=== PATIENT | male | born 1945 | race Caucasian/White ===

== ENCOUNTER 2021-11-17 14:55 | Outpatient (CLI) | payer MEDICARE | END 2021-11-17 14:56 | disposition home or self-care (01) | LOC: RAD-FRANK 14:55 | PROVIDERS: ATTEND Nurse Practitioner Family | DX: K59.00 Constipation, unspecified (principal) | CPT/HCPCS: 74018 ==

== ENCOUNTER 2021-12-08 09:57 | Outpatient (CLI) | payer MEDICARE | END 2021-12-08 09:58 | disposition home or self-care (01) | LOC: NM 09:57 | PROVIDERS: ATTEND Internal Medicine Hematology & Oncology | DX: C79.51 Secondary malignant neoplasm of bone (principal); C78.7 Secondary malignant neoplasm of liver and intrahepatic bile duct; C7A.1 Malignant poorly differentiated neuroendocrine tumors | CPT/HCPCS: 78306; A9503 ==

== ENCOUNTER 2022-03-22 08:33 | Outpatient (CLI) | payer MEDICARE ==
[2022-03-22] MEDS ORDERED: Iopamidol 370 76% 100 ML VIAL ONE (09:20)
== END 2022-03-22 08:34 | disposition home or self-care (01) ==
LOC: CT 08:33
PROVIDERS: ATTEND Internal Medicine Hematology & Oncology
DX: C7A.1 Malignant poorly differentiated neuroendocrine tumors (principal); C78.7 Secondary malignant neoplasm of liver and intrahepatic bile duct; C79.51 Secondary malignant neoplasm of bone; C77.5 Secondary and unspecified malignant neoplasm of intrapelvic lymph nodes; K62.89 Other specified diseases of anus and rectum
CPT/HCPCS: 71260; 74177; 78306; 82565; A9503; Q9967

== ENCOUNTER 2022-06-17 12:21 | Outpatient (CLI) | payer MEDICARE ==
[~2022-06-17 12:21] MED LIST: Iopamidol 370 76% 100 ML VIAL ONE
== END 2022-06-17 12:22 | disposition home or self-care (01) ==
LOC: BICCT 12:21
PROVIDERS: ATTEND Internal Medicine Hematology & Oncology
DX: C7A.1 Malignant poorly differentiated neuroendocrine tumors (principal); C78.7 Secondary malignant neoplasm of liver and intrahepatic bile duct; C79.51 Secondary malignant neoplasm of bone; R59.0 Localized enlarged lymph nodes; K62.89 Other specified diseases of anus and rectum
CPT/HCPCS: 71260; 74177; Q9967

== ENCOUNTER 2022-12-05 08:21 | Outpatient (CLI) | payer MEDICARE ==
[2022-12-05] MEDS ORDERED: Iopamidol 370 76% 100 ML VIAL ONE (14:10)
== END 2022-12-05 08:22 | disposition home or self-care (01) ==
LOC: BICCT 08:21
PROVIDERS: ATTEND Internal Medicine Hematology & Oncology
DX: C7A.1 Malignant poorly differentiated neuroendocrine tumors (principal); C78.7 Secondary malignant neoplasm of liver and intrahepatic bile duct; C79.51 Secondary malignant neoplasm of bone; R59.0 Localized enlarged lymph nodes; K76.89 Other specified diseases of liver; M89.9 Disorder of bone, unspecified; K62.89 Other specified diseases of anus and rectum; Z93.3 Colostomy status
CPT/HCPCS: 71260; 74177; 82565; Q9967

== ENCOUNTER 2023-01-02 11:27 | Outpatient (CLI) | payer MEDICARE | END 2023-01-02 11:28 | disposition home or self-care (01) | LOC: RAD-FRANK 11:27 | PROVIDERS: ATTEND Nurse Practitioner Family | DX: R05.9 Cough, unspecified (principal) | CPT/HCPCS: 71046 ==

== ENCOUNTER 2023-04-25 07:44 | Outpatient (CLI) | payer OTHER | END 2023-04-25 07:45 | disposition home or self-care (01) | LOC: CT 07:44 | PROVIDERS: ATTEND Internal Medicine Hematology & Oncology | DX: C7A.1 Malignant poorly differentiated neuroendocrine tumors (principal); C78.7 Secondary malignant neoplasm of liver and intrahepatic bile duct; C79.51 Secondary malignant neoplasm of bone; K76.9 Liver disease, unspecified; M89.9 Disorder of bone, unspecified; R90.82 White matter disease, unspecified; R59.0 Localized enlarged lymph nodes | CPT/HCPCS: 70470; 71260; 74177; J1642 ==

== ENCOUNTER 2023-08-24 09:59 | Outpatient (CLI) | payer OTHER | END 2023-08-24 10:00 | disposition home or self-care (01) | LOC: CT 09:59 | PROVIDERS: ATTEND Internal Medicine Hematology & Oncology | DX: C7A.1 Malignant poorly differentiated neuroendocrine tumors (principal); C78.7 Secondary malignant neoplasm of liver and intrahepatic bile duct; C79.51 Secondary malignant neoplasm of bone; R59.0 Localized enlarged lymph nodes | CPT/HCPCS: 71260; 74177; 82565 ==

== ENCOUNTER 2023-11-20 09:15 | Outpatient (CLI) | payer OTHER ==
[2023-11-20] MEDS ORDERED: Iopamidol 370 76% 100 ML VIAL ONE (10:51)
== END 2023-11-20 09:16 | disposition home or self-care (01) ==
LOC: CT 09:15
PROVIDERS: ATTEND Internal Medicine Hematology & Oncology
DX: C7A.1 Malignant poorly differentiated neuroendocrine tumors (principal); C78.7 Secondary malignant neoplasm of liver and intrahepatic bile duct; C79.51 Secondary malignant neoplasm of bone; R42 Dizziness and giddiness; K62.89 Other specified diseases of anus and rectum; R90.82 White matter disease, unspecified; I65.23 Occlusion and stenosis of bilateral carotid arteries; I67.89 Other cerebrovascular disease; J34.89 Other specified disorders of nose and nasal sinuses; R90.89 Other abnormal findings on diagnostic imaging of central nervous system; K76.89 Other specified diseases of liver; I67.2 Cerebral atherosclerosis; I70.8 Atherosclerosis of other arteries
CPT/HCPCS: 70470; 71260; 74177; Q9967